=== PATIENT | male | born 1960 ===

== ENCOUNTER 2019-02-07 07:23 | Outpatient (CLI) | payer OTHER ==
[~2019-02-07 07:23] MED LIST: ASA81 MG; CARDIZEM CD180 MG; SINGULAIR4 MG; SYNTHROID88 MCG
== END 2019-02-07 07:38 | disposition home or self-care (01) ==
LOC: NUCLEAR 07:23
DX: I25.10 Atherosclerotic heart disease of native coronary artery without angina pectoris (principal); R06.00 Dyspnea, unspecified; I10 Essential (primary) hypertension
CPT/HCPCS: 78452; 93017; A9500